=== PATIENT | female | born 1980 | race Caucasian/White ===

== ENCOUNTER 2016-10-02 15:16 | Emergency (ER) | payer OTHER ==
[2016-10-02 15:45] VITALS: BP 144/93
--- NOTE | 2016-10-02 19:39 | Emergency Department Report ---
ED Rash HPI - HPI Chief Complaint: Skin Rash Stated Complaint: RASH Duration: has been going on since she's moved here from the last couple months. She reports that the rash is very intermittent Rash Symptoms: Yes Itching, No Facial Swelling, No Tongue/Oral Swelling, No Breathing Difficulties, No Choking Sensation, No Wheezing/Dyspnea, No Peeling, No Blistering, No Fever, No Lightheaded, No Malaise, No Myalgias Severity: moderate Other History: 36-year-old -Fil[place] female comes in complaining of rash on her body a.m. Patient states she took an allergy medication which is Zyrtec and the rash subsided. She denies any wheezing and no shortness of breath no outbreak at this time. ED Review of Systems ROS: Stated complaint: RASH Other details as noted in HPI Constitutional: no symptoms reported Skin: rash ED Past Medical Hx - Past Medical History Previous Medical History?: No - Surgical History Past Surgical History?: Yes Additional Surgical History: Metal plate in left arm - Social History Smoking Status: Current Every Day Smoker Substance Use Type: Alcohol - Medications Home Medications: Home Medications Medication Instructions Recorded Confirmed Last Taken Type Cetirizine HCl [ZyrTEC] 10 mg PO QDAY #30 capsule 10/02/16 Unknown Rx Rash Exam - Exam General: Vital signs noted. No distress. Alert and acting appropriately. HEENT: No Periorbital Edema, No Conjuctival Injection, No Chemosis, No Perioral Edema, No Tongue Edema, No Uvular Edema, No Compromised Airway, No Drooling Lungs: Yes Good Air Exchange Heart: Yes Regular, No Murmur Skin: Yes Urticarial Rash (examination of the nose shows urticaria, no active rash at this time) ED Course Vital Signs 10/02/16 15:40 Temperature 98.7 F Pulse Rate 98 H Respiratory 18 Rate Blood Pressure 144/93 O2 Sat by Pulse 100 Oximetry ED Medical Decision Making - Medical Decision Making Patient's been evaluated by this provider fast track. Based on history and physical examination of her photo as well as her body. Patient appears to have urticaria. Recommend patient to follow up with a jewelry drill operator or oil producer. Since patient denies any new change of body wash detergents or perfumes. Encouraged patient to continue with the Zyrtec daily. Patient verbalized understanding. Critical care attestation.: If time is entered above; I have spent that time in minutes in the direct care of this critically ill patient, excluding procedure time. ED Disposition Clinical Impression: Rash Disposition: DISCHARGED TO HOME OR SELFCARE Is pt being admited?: No Does the pt Need Aspirin: No Condition: Stable Instructions: Acute Rash (ED) Additional Instructions: With the Zyrtec as prescribed follow up with an oil producer for further evaluation. Prescriptions: Cetirizine HCl [ZyrTEC] 10 mg PO QDAY #30 capsule Referrals: PRIMARY CARE, [Primary Care Provider] - 3-5 Days [facility] [Provider Group] - 3-5 Days
== END 2016-10-02 19:53 | disposition home or self-care (01) ==
LOC: ED 15:16
DX: R21 Rash and other nonspecific skin eruption (principal); F17.200 Nicotine dependence, unspecified, uncomplicated
CPT/HCPCS: 99282